=== PATIENT | female | born 1965 | race Caucasian/White ===

== ENCOUNTER 2024-04-29 07:30 | Outpatient (RCR) | payer BC, SELFPAY | END 2024-08-27 23:59 | disposition home or self-care (01) | PROVIDERS: PCP Student in an Organized Health Care Education/Training Program; Visit Provider Family Medicine | DX: M62.89 Other specified disorders of muscle (principal); N94.2 Vaginismus; N94.10 Unspecified dyspareunia; Z51.89 Encounter for other specified aftercare | CPT/HCPCS: 97110; 97140; 97162 ==